=== PATIENT | female | born 1925 | race Caucasian/White ===

== ENCOUNTER → 2016-09-13 | Outpatient (CLI) | payer MEDICARE, MEDICAID ==
[~2016-09-13] MED LIST: ESCI10TA54 PO; ESOM40CA PO; LIP40 PO; MECL-109 PO; OLME40TA12 PO; TRAM50TA73 PO
== END | disposition home or self-care (01) ==
LOC: MAMMO 09:23
PROVIDERS: ATTEND Specialist
DX: Z12.31 Encounter for screening mammogram for malignant neoplasm of breast (principal)
CPT/HCPCS: G0202